=== PATIENT | male | born 2000 | race Caucasian/White ===

== ENCOUNTER 2023-02-23 03:10 | Emergency (ER) | payer OTHER ==
[~2023-02-23] VITALS: Ht 167.6 cm; Wt 68.0 kg
[2023-02-23 03:10] VITALS: BP 132/77
--- NOTE | 2023-02-23 03:10 | NUR ---
TO [facility], BIB [facility], FOR PREBOOK
--- NOTE | 2023-02-23 03:25 | NUR ---
Patient sitting in chair, A/Ox4, chest rise and fall symmetrical, no c/o pain or s/s of distress, [facility] Officer at bedside.
--- NOTE | 2023-02-23 03:35 | NUR ---
ER physician speaking with patient. Addendum: 02/23/23 at 0356 by [id number] ER physician speaking with patient, [facility] officer at bedside.
[2023-02-23 03:56] VITALS: BP 128/74
--- NOTE | 2023-02-23 03:56 | NUR ---
PATIENT BIB [facility]. PATIENT EXAMINED BY . PATIENT MEDICALLY CLEARED AND RELEASED IN CUSTODY IN STABLE CONDITION. ORIGINAL PRE-BOOK FORM GIVEN TO OFFICER Aryan.
== END 2023-02-23 03:56 ==
LOC: MED 03:10
DX: F10.129 Alcohol abuse with intoxication, unspecified (principal); F32.9 Major depressive disorder, single episode, unspecified; Z02.89 Encounter for other administrative examinations; V89.2XXA Person injured in unspecified motor-vehicle accident, traffic, initial encounter; Y93.89 Activity, other specified; Y92.89 Other specified places as the place of occurrence of the external cause; Y99.8 Other external cause status
CPT/HCPCS: 99283